=== PATIENT | female | born 1945 | race Two or more races ===

== ENCOUNTER → 2019-10-15 | Emergency (ER) | payer OTHER ==
[~2019-10-15] VITALS: Ht 165.1 cm; Wt 73.9 kg
[~2019-10-15] MED LIST: ACTOS15 MG PO; ATACAND4 MG PO; CARAFATE1 G PO; COZAAR50 MG; LEVSIN/SL0.125 MG PO; LEXAPRO5 MG; METFORMIN HCL500 MG PO; MOBIC15 MG PO; NEURONTIN800 MG; PROTONIX40 MG PO; SIMVASTATIN10 MG; TRILEPTAL150 MG PO; [UNRECOGNIZED DRUG - OTHER]
== END | disposition home or self-care (01) ==
LOC: ER 22:00
DX: S00.03XA Contusion of scalp, initial encounter (principal); S80.02XA Contusion of left knee, initial encounter; S60.212A Contusion of left wrist, initial encounter; M12.562 Traumatic arthropathy, left knee; M12.532 Traumatic arthropathy, left wrist; M54.2 Cervicalgia; R10.2 Pelvic and perineal pain; W18.09XA Striking against other object with subsequent fall, initial encounter; Y93.01 Activity, walking, marching and hiking; Y92.481 Parking lot as the place of occurrence of the external cause; Y99.8 Other external cause status

== ENCOUNTER 2021-04-07 08:26 | Outpatient (CLI) | payer OTHER | END 2021-04-07 08:32 | disposition home or self-care (01) | LOC: LAB 08:26 | PROVIDERS: ATTEND Orthopaedic Surgery | DX: E55.9 Vitamin D deficiency, unspecified (principal); M85.9 Disorder of bone density and structure, unspecified; E56.1 Deficiency of vitamin K ==

== ENCOUNTER 2021-10-04 09:00 | Outpatient (CLI) | payer OTHER | END 2021-10-04 09:07 | disposition home or self-care (01) | LOC: LAB 09:00 | PROVIDERS: ATTEND Orthopaedic Surgery | DX: D64.89 Other specified anemias (principal); E88.89 Other specified metabolic disorders; D68.8 Other specified coagulation defects; N39.0 Urinary tract infection, site not specified; Z22.322 Carrier or suspected carrier of Methicillin resistant Staphylococcus aureus; E11.65 Type 2 diabetes mellitus with hyperglycemia; E78.49 Other hyperlipidemia; I10 Essential (primary) hypertension; E03.8 Other specified hypothyroidism; E55.9 Vitamin D deficiency, unspecified; Z76.89 Persons encountering health services in other specified circumstances; I49.8 Other specified cardiac arrhythmias ==

== ENCOUNTER 2021-10-04 09:53 | Inpatient (IN) | payer OTHER ==
[~2021-10-04] VITALS: Ht 152.4 cm; Wt 64.4 kg
[2021-10-13] MEDS ORDERED: JENTADUETO 2.51 EAC2 PO (15:42)
[2021-10-13] MEDS ORDERED: [UNRECOGNIZED DRUG - CODE] PO (15:43)
[2021-10-13] MEDS ORDERED: [UNRECOGNIZED DRUG - OTHER] PO (15:45)
[2021-10-13] MEDS ORDERED: OMEPRAZOLE MAGN20 MG PO (15:46)
[2021-10-13] MEDS ORDERED: LIPIT PO (15:46)
[2021-10-18] MEDS ORDERED: ULTRAM50 MG (08:18)
[2021-10-18] MEDS ORDERED: LORATADINE10 MG (08:18)
[2021-10-18] MEDS ORDERED: XARELTO10 M1 (08:18)
[2021-10-18] MEDS ORDERED: PENTOXIFYLLINE400 MG (08:18)
[2021-10-18] MEDS ORDERED: MOMETASONE FURO60 ML (08:19)
[2021-10-18] MEDS ORDERED: ATORVASTATIN CA20 MG (08:19)
[2021-10-18] MEDS ORDERED: RAZADYNE ER16 MG (08:19)
[2021-10-18] MEDS ORDERED: VOLTAREN ARTHRI20 GM (08:19)
[2021-10-18] MEDS ORDERED: VENLAFAXINE HC150 MG (08:19)
[2021-10-18] MEDS ORDERED: TRADJENTA5 MG (08:20)
[2021-10-18] MEDS ORDERED: NITROFURANTOIN100 M1 (08:20)
[2021-10-18] MEDS ORDERED: ALLERGY RELIEF180 MG (08:20)
[2021-10-18] MEDS ORDERED: CENTRUM SILVER1 EAC3 (08:20)
[2021-10-18] MEDS ORDERED: BETAMETHASONE D15 G2 (08:20)
[2021-10-18] MEDS ORDERED: REFRESH RELIEVA10 ML (08:20)
[2021-10-18] MEDS ORDERED: MECLIZINE HCL25 MG (08:21)
[2021-10-18] MEDS ORDERED: METFORMIN HCL1000 M3 (08:21)
== END 2021-10-21 20:00 | DRG 470 ==
LOC: O/R 10-18 06:15 → SURH 10-18 06:15
PROVIDERS: ADMIT Orthopaedic Surgery; ATTEND Orthopaedic Surgery
PROC: 0SRC0J9 Replacement of Right Knee Joint with Synthetic Substitute, Cemented, Open Approach (ICD-10-PCS; principal; 2021-10-18 07:00)
DX: M17.11 Unilateral primary osteoarthritis, right knee (principal); I10 Essential (primary) hypertension; Z20.822 Contact with and (suspected) exposure to COVID-19; M65.861 Other synovitis and tenosynovitis, right lower leg

== ENCOUNTER 2023-10-03 17:20 | Emergency (ER) | payer OTHER ==
[~2023-10-03] VITALS: Ht 160 cm; Wt 74.8 kg
[~2023-10-03 17:20] MED LIST changes: +ALLERGY RELIEF180 MG; +ATORVASTATIN CA20 MG; +BETAMETHASONE D15 G2; +CENTRUM SILVER1 EAC3; +JENTADUETO 2.51 EAC2 PO; +LIPIT PO; +LORATADINE10 MG; +MECLIZINE HCL25 MG; +METFORMIN HCL1000 M3; +MOMETASONE FURO60 ML; +NITROFURANTOIN100 M1; +OMEPRAZOLE MAGN20 MG PO; +PENTOXIFYLLINE400 MG; +RAZADYNE ER16 MG; +REFRESH RELIEVA10 ML; +TRADJENTA5 MG; +ULTRAM50 MG; +VENLAFAXINE HC150 MG; +VOLTAREN ARTHRI20 GM; +XARELTO10 M1; +[UNRECOGNIZED DRUG - CODE] PO; +[UNRECOGNIZED DRUG - OTHER] PO
[2023-10-03] MEDS ORDERED: GLIMEPIRIDE2 MG (17:35)
[2023-10-03 18:31] LABS: HEMATOCRIT 40.7 % (36.0-45.00); MEAN CORPUSCULAR HEMOGLOBIN 25.2 pg (27.00-32.0); PLATELET COUNT 349 K/uL (150-450); RED BLOOD COUNT 5.15 M/uL (4.00-6.00)
[2023-10-03 18:50] LABS: CALCIUM 9.4 mg/dL (8.5-10.1); CREATININE SERUM 0.95 mg/dL (0.55-1.02); GFR 56.74; POTASSIUM 4.07 mEq/L (3.5-5.1)
[2023-10-03 19:45] LABS: URINE APPEARANCE Clear; URINE BILIRRUBIN Negative (NEGATIVE); URINE BLOOD Small; URINE LEUKOCYTE Small; URINE NITRATE Negative; URINE PROTEIN Negative (NEGATIVE); URINE UROBILINOGEN 0.2 E.U./dl
[2023-10-03 19:51] LABS: URINE RBC 34.3 uL (0.0-20.8)
[2023-10-03 20:21] LABS: URINE EPITHELIAL CELLS 0.9 uL (0.0-38.8); URINE GLUCOSE >=1000 MG/DL (NEGATIVE)
[2023-10-03 20:25] LABS: URINE YEAST NEGATIVE /hpf
== END 2023-10-03 20:52 | disposition home or self-care (01) ==
LOC: ER 17:20
PROVIDERS: General Practice
DX: N39.0 Urinary tract infection, site not specified (principal)
CPT/HCPCS: 36415; 99283; J0696

== ENCOUNTER 2024-01-19 13:35 | Outpatient (CLI) | payer OTHER ==
[~2024-01-19 13:35] MED LIST changes: +GLIMEPIRIDE2 MG
== END 2024-01-19 13:42 | disposition home or self-care (01) ==
LOC: SONOGRAMA 13:35
DX: N39.0 Urinary tract infection, site not specified (principal); N95.2 Postmenopausal atrophic vaginitis

== ENCOUNTER 2024-07-20 09:51 | Emergency (ER) | payer OTHER ==
[~2024-07-20] VITALS: Ht 152.4 cm; Wt 65.8 kg
[~2024-07-20 09:51] MED LIST changes: +BINOSTO70 MG PO; +EFFEXOR XR150 MG PO; +PENTOXIFYLLINE400 MG PO; +PRISTIQ25 MG PO
[2024-07-20] MEDS ORDERED: GALANTAMINE HBR24 MG (10:31)
[2024-07-20] MEDS ORDERED: JENTADUETO 2.51 EAC2 (10:31)
[2024-07-20] MEDS ORDERED: COZAAR100 MG (10:31)
[2024-07-20] MEDS ORDERED: LIPITOR20 MG (10:32)
[2024-07-20] MEDS ORDERED: PRISTIQ ER100 MG (10:32)
[2024-07-20] MEDS ORDERED: NAMENDA XR28 MG (10:32)
[2024-07-20] MEDS ORDERED: CHILDREN'S ASPI81 MG (10:33)
[2024-07-20] MEDS ORDERED: ALENDRONATE SOD70 MG (10:33)
[2024-07-20] MEDS ORDERED: GLIMEPIRIDE1 MG (10:33)
[2024-07-20] MEDS ORDERED: TRENTAL (10:34)
[2024-07-20] MEDS ORDERED: KETOROLAC TROMETHAMINE 30 MG VIAL IM STA (11:16)
[2024-07-20] MEDS ORDERED: KETOROLAC TROMETHAMINE 30 MG VIAL ONE (11:20)
[2024-07-20 14:22] LABS: HEMATOCRIT 38.8 % (36.0-45.00); HEMOGLOBIN 12.8 g/dL (12.0-15.00); MEAN CELL VOLUME 82.5 fL (80.00-100.00); MEAN CORPUSCULAR HEMOGLOBIN 27.2 pg (27.00-32.0); PLATELET COUNT 303 K/uL (150-450); RED BLOOD COUNT 4.69 M/uL (4.00-6.00); RED CELL DISTRIBUTION WIDTH 14.7 % (11.5-14.5)
[2024-07-20 14:51] LABS: D DIMER 0.81 MG/L; PARTIAL THROMBOPLASTIN TIME 25.2 SECONDS (22.0-34.0)
[2024-07-20 14:52] LABS: INR 0.98; PROTHROMBIN TIME 10.7 SECONDS (9.0-11.5)
[2024-07-20 14:57] LABS: ALBUMIN 3.7 gm/dL (3.4-5.0); BILIRUBIN TOTAL 0.37 mg/dL (0.3-1.2); CALCIUM 9.8 mg/dL (8.5-10.1); CREATININE SERUM 0.98 mg/dL (0.55-1.02); GFR 54.75; GLOBULINA 3.3 G/DL (2.4-3.5); POTASSIUM 4.48 mEq/L (3.5-5.1)
[2024-07-20] MEDS ORDERED: ZANAFLEX4 MG PO (16:00)
[2024-07-20] MEDS ORDERED: NABUMETONE750 MG PO (16:00)
== END 2024-07-20 16:21 | disposition home or self-care (01) ==
LOC: ER 09:52
PROVIDERS: General Practice
DX: M25.512 Pain in left shoulder (principal); E11.9 Type 2 diabetes mellitus without complications; Z79.84 Long term (current) use of oral hypoglycemic drugs; I10 Essential (primary) hypertension; E03.9 Hypothyroidism, unspecified

== ENCOUNTER 2024-12-29 16:42 | Emergency (ER) | payer OTHER ==
[~2024-12-29] VITALS: Ht 149.9 cm; Wt 74.8 kg
[~2024-12-29 16:42] MED LIST changes: +ALENDRONATE SOD70 MG; +CHILDREN'S ASPI81 MG; +COZAAR100 MG; +GALANTAMINE HBR24 MG; +GLIMEPIRIDE1 MG; +JENTADUETO 2.51 EAC2; +LIPITOR20 MG; +NABUMETONE750 MG PO; +NAMENDA XR28 MG; +PRISTIQ ER100 MG; +TRENTAL; +ZANAFLEX4 MG PO
[2024-12-29] MEDS ORDERED: GUAIFENESIN 200 MG/10 ML BLIST.PACK PO STA (19:02)
[2024-12-29] MEDS ORDERED: GUAIFENESIN 200 MG/10 ML BLIST.PACK PO ONE (19:12)
[2024-12-29 19:37] LABS: HEMATOCRIT 37.8 % (36.0-45.00); HEMOGLOBIN 12.9 g/dL (12.0-15.00); MEAN CELL VOLUME 82.2 fL (80.00-100.00); MEAN CORPUSCULAR HGB CONC 34.1 g/dl (32.0-36.0); PLATELET COUNT 246 K/uL (150-450); RED CELL DISTRIBUTION WIDTH 14.7 % (11.5-14.5)
== END 2024-12-29 21:06 | disposition home or self-care (01) ==
LOC: ER 16:45
PROVIDERS: General Practice
DX: J10.1 Influenza due to other identified influenza virus with other respiratory manifestations (principal); Z20.822 Contact with and (suspected) exposure to COVID-19; E11.9 Type 2 diabetes mellitus without complications; Z79.84 Long term (current) use of oral hypoglycemic drugs; I10 Essential (primary) hypertension